=== PATIENT | male | born 1970 | race African-American/Black ===

== ENCOUNTER 2024-08-27 06:56 | Emergency (ER) | payer OTHER ==
[~2024-08-27] VITALS: Ht 170.2 cm; Wt 68.0 kg
[2024-08-27 07:03] VITALS: O2SAT 98
[2024-08-27] MEDS: IBUPROFEN 600MG TABLET PO ONE (10:00)
[2024-08-27] MEDS: HYDROCODONE/ACETAMINOPHEN 5/325MG TABLET PO ONE (10:00)
[2024-08-27 10:25] LABS: CLARITY URINE CLEAR (CLEAR); COLOR URINE YELLOW (YELLOW); GLUCOSE URINE NEGATIVE (NEGATIVE); KETONES URINE NEGATIVE (NEGATIVE); PH URINE 7.5 (4.5-8.0); PROTEIN URINE NEGATIVE (NEGATIVE); SPECIFIC GRAVITY URINE 1.005 (1.005-1.030)
[2024-08-27 10:26] LABS: LEUKOCYTE ESTERASE URINE NEGATIVE (NEGATIVE); NITRITE URINE NEGATIVE (NEGATIVE); OCCULT BLOOD URINE NEGATIVE (NEGATIVE); UROBILINOGEN URINE 0.2 E.U./dL (0.2-1.0)
[2024-08-27] MEDS ORDERED: IBUP-1523 MT (10:38)
[2024-08-27] MEDS ORDERED: P50 MT (10:38)
[2024-08-27] MEDS ORDERED: CYCL10TA21 MT (10:38)
[2024-08-27] MEDS ORDERED: TOPUD MT (10:38)
[2024-08-27 10:51] VITALS: BP 132/56; PULSE 69; RESP 16; TEMP 36.39180; O2SAT 99
== END 2024-08-27 10:58 | disposition home or self-care (01) ==
LOC: ER 06:56
DX: M47.816 Spondylosis without myelopathy or radiculopathy, lumbar region (principal); Z20.822 Contact with and (suspected) exposure to COVID-19
CPT/HCPCS: 72100; 81003; 87426; 87804; 99284